=== PATIENT | male | born 1960 | race Caucasian/White ===

== ENCOUNTER 2019-09-25 21:54 | Emergency (ER) | payer BC ==
[2019-09-25] MEDS ORDERED: KETOROLAC 30 MG/ML 1 ML VIAL IVP STA ×2 (22:40→22:41)
[2019-09-25] MEDS ORDERED: SODIUM CHLORIDE 0.9% 1,000 ML IV STA (22:40)
[2019-09-25 23:28] VITALS: RESP 18
[2019-09-25 23:31] LABS: Basophils % (A) 0 %; Eosinophils # (A) 0.2 k/uL (0-0.7); Eosinophils % (A) 3 %; HCT 44.4 % (39.0-53.0); HGB 14.6 gm/dL (13.0-17.5); Lymphocytes # (A) 0.7 k/uL (1.0-4.8); Lymphocytes % (A) 8 %; MCHC 32.9 g/dL (31.0-37.0); Mean Platelet Volume 8.5; Monocytes # (A) 0.4 k/uL (0-1.0); Monocytes % (A) 4 %; Neutrophils # (A) 7.5 k/uL (1.3-7.7); Neutrophils % (A) 84 %; Platelet Count 227 k/uL (150-450); RBC 5.04 m/uL (4.30-5.90)
[2019-09-25 23:41] LABS: Appearance,Urine Clear (Clear); Bilirubin,Urine Negative (Negative); Blood,Urine Small (Negative); Color,Urine Yellow; Glucose,Urine (UA) Negative (Negative); Hyaline Casts,Urine 1 /lpf (0-2); Ketones,Urine Negative (Negative); Leukocyte Esterase,Urine Negative (Negative); Mucus,Urine Occasional /hpf; Nitrite,Urine Negative (Negative); PH, Urine 6.5 (5.0-8.0); Protein,Urine 1+ (Negative); RBC,Urine 36 /hpf (0-5); Specific Gravity,Urine 1.025 (1.001-1.035); Squamous Epithelial Cell,Urine 1 /hpf (0-4); WBC,Urine 5 /hpf (0-5)
[2019-09-25 23:43] LABS: ALT 32 U/L (4-49); AST 31 U/L (17-59); African American GFR (CKD) >90 (>60 ml/min/1.73 sqM); Albumin 4.5 g/dL (3.5-5.0); Alkaline Phosphatase 66 U/L (38-126); Anion Gap 9 mmol/L; Blood Urea Nitrogen 19 mg/dL (9-20); Calcium 9.2 mg/dL (8.4-10.2); Carbon Dioxide 23 mmol/L (22-30); Chloride 107 mmol/L (98-107); Glucose 167 mg/dL (74-99); Non-African American GFR(CKD) >90 (>60 ml/min/1.73 sqM); Potassium 4.2 mmol/L (3.5-5.1); Sodium 139 mmol/L (137-145); Total Bilirubin 0.5 mg/dL (0.2-1.3); Total Protein 7.7 g/dL (6.3-8.2)
--- NOTE | 2019-09-26 00:27 | CT ---
EXAMINATION TYPE: CT abdomen pelvis wo con DATE OF EXAM: 09/26/2019 COMPARISON: None HISTORY: RLQ pain Difficulty urinating CT DLP: 1320.4 mGycm Automated exposure control for dose reduction was used. Multiple axial sections were obtained from the diaphragm to the floor the pelvis with no contrast. FINDINGS: Lung bases are clear. There is no pleural effusion. Heart size is normal. There is no pericardial eff usion. Liver spleen stomach pancreas gallbladder appear normal. Bile ducts are not dilated. There is no adrenal mass. Kidneys show normal size and contour. There is no hydronephrosis. There is 1 mm calculus interpolar left kidney. Ureters are not dilated. There is no retroperitoneal adenopathy . Bladder distends smoothly. Bladder is almost empty. There is a 1 mm calcification in the urinary bl adder on the right side that is probably a tiny stone in the distal right ureter at the ureterovesica l junction. There is minimal prostatic calcification. There is no inguinal hernia. There is no free f luid in the pelvis. Appendix appears normal. There is no mesenteric edema. There is no ascites or free air. There is no e vidence of a bowel obstruction. Lumbar spine is intact. Bony pelvis is intact. IMPRESSION: Tiny left renal calculus. Tiny calculus at the right ureterovesical junction without hydronephrosis. Normal appendix.
--- NOTE | 2019-09-26 00:53 | ED ---
General Adult HPI - General Chief complaint: Abdominal Pain Stated complaint: Abd pain Time Seen by Provider: 09/25/19 22:21 Source: patient, RN notes reviewed, old records reviewed Mode of arrival: ambulatory Limitations: no limitations - History of Present Illness Initial comments: 59-year-old male patient is a past history Ceftin for renal calculi appro ximately 10 years ago presents to ED complaining of right lower quadrant pain. Patient was this pain began approximately 1900 today. Reports they felt that he had to urinate, however when he attempts to urinate is unable to. Patient has been able to urinate since without difficulty however. Denies any chest pain shortness of breath. Denies any other complaints at this time. Systemic: Pt denies fatigue, fever/chills, rash. Pt denies weakness, night sweats, weight loss. Neuro: Pt denies headache, visual disturbances, syncope or pre-syncope. HEENT: Pt denies ocular discharge or irritation, otalgia, rhinorrhea, pharyngitis or notable lymphadenopathy. Cardiopulmonary: Pt denies chest pain, SOB, heart palpitations, dyspnea on exertion. Abdominal/GI: Pt denies n/v/d. : Pt denies dysuria, burning w/ urination, frequency/urgency. Denies new onset urinary or bowel incontinence. MSK: Pt denies myalgia, loss of strength or function in extremities. Neuro: Pt denies new onset weakness, paresthesias. - Related Data Previous Rx's Medication Instructions Recorded Tamsulosin [Flomax] 0.4 mg PO DAILY #10 cap 09/26/19 Allergies Allergy/AdvReac Type Severity Reaction Status Date / Time No Known Allergies Allergy Verified 09/25/19 22:01 Review of Systems ROS Statement: Those systems with pertinent positive or pertinent negative responses have been documented in the HPI. ROS Other: All systems not noted in ROS Statement are negative. Past Medical History Past Medical History: Hyperlipidemia History of Any Multi-Drug Resistant Organisms: None Reported Past Surgical History: Orthopedic Surgery Past Psychological History: No Psychological Hx Reported Smoking Status: Never smoker Past Alcohol Use History: None Reported Past Drug Use History: None Reported General Exam - General Exam Comments Initial Comments: Constitutional: NAD, AOX3, Pt has pleasant affect. HEENT: NC/AT, trachea midline, neck supple, no lymphadenopathy. Posterior pharynx non erythematous, without exudates. External ears appear normal, without discharge. Mucous membranes moist. Eyes PERRLA, EOM intact. There is no scleral icterus. No pallor noted. Cardiopulmonary: RRR, no murmurs, rubs or gallops, no JVD noted. Lungs CTAB in anterior and posterior coffey. No peripheral edema. Abdominal exam: Abdomen soft and non-distended. Abdomen mildly tender to palpation right lower quadrant, there is no abdominal tenderness. Bowel sounds active in LLQ. No hepatosplenomegaly. No ecchymosis Neuro: CN II-XII grossly intact. No nuchal rigidity. No raccon eyes, no turner sign, no hemotympanum. No cervical spinal tenderness. MSK: No posterior calf tenderness bilaterally, homans sign negative bilaterally. Posterior tibialis and radial pulse +2 bilaterally. Sensation intact in upper and lower extremities. Full active ROM in upper and lower extremities, 5/5 stregnth. Limitations: no limitations Course Vital Signs 09/25/19 09/25/19 22:02 23:26 Temperature 97.4 F L Pulse Rate 88 83 Respiratory 20 18 Rate Blood Pressure 141/95 141/95 O2 Sat by Pulse 94 L 97 Oximetry Medical Decision Making - Medical Decision Making 59-year-old male patient presents ED by right lower quadrant abdominal pain. Patient vital signs are stable, afebrile. Physical exam same in the right lower quadrant tenderness. Laboratory investigation revealed hyperglycemia 167. UA displayed 36 red blood cells. This patient has history of renal calculi in the abdominal region is very mildly tender to palpation, UA consistent with renal calculi a CT head and pelvis without contrast was obtained. This did display a small ureteral calculi on the right side. No signs of septic stone. No hydronephrosis. Patient discharged with Flomax and urology follow-up. Case discussed with Dr. Hill. - Lab Data Result diagrams: 09/25/19 23:01 09/25/19 23:01 Lab Results 09/25/19 09/25/19 09/25/19 Range/Units 23:01 23:01 23:01 WBC 9.0 (3.8-10.6) k/uL RBC 5.04 (4.30-5.90) m/uL Hgb 14.6 (13.0-17.5) gm/dL Hct 44.4 (39.0-53.0) % MCV 88.0 (80.0-100.0) fL MCH 29.0 (25.0-35.0) pg MCHC 32.9 (31.0-37.0) g/dL RDW 13.0 (11.5-15.5) % Plt Count 227 (150-450) k/uL Neutrophils % 84 % Lymphocytes % 8 % Monocytes % 4 % Eosinophils % 3 % Basophils % 0 % Neutrophils # 7.5 (1.3-7.7) k/uL Lymphocytes # 0.7 L (1.0-4.8) k/uL Monocytes # 0.4 (0-1.0) k/uL Eosinophils # 0.2 (0-0.7) k/uL Basophils # 0.0 (0-0.2) k/uL Sodium 139 (137-145) mmol/L Potassium 4.2 (3.5-5.1) mmol/L Chloride 107 (98-107) mmol/L Carbon Dioxide 23 (22-30) mmol/L Anion Gap 9 mmol/L BUN 19 (9-20) mg/dL Creatinine 0.76 (0.66-1.25) mg/dL Est GFR (CKD-EPI)AfAm >90 (>60 ml/min/1.73 sqM) Est GFR (CKD-EPI)NonAf >90 (>60 ml/min/1.73 sqM) Glucose 167 H (74-99) mg/dL Plasma Lactic Acid Simeon 1.4 (0.7-2.0) mmol/L Calcium 9.2 (8.4-10.2) mg/dL Total Bilirubin 0.5 (0.2-1.3) mg/dL AST 31 (17-59) U/L ALT 32 (4-49) U/L Alkaline Phosphatase 66 (38-126) U/L Total Protein 7.7 (6.3-8.2) g/dL Albumin 4.5 (3.5-5.0) g/dL Lipase 46 (23-300) U/L Urine Color Urine Appearance (Clear) Urine pH (5.0-8.0) Ur Specific Kelliher (1.001-1.035) Urine Protein (Negative) Urine Glucose (UA) (Negative) Urine Ketones (Negative) Urine Blood (Negative) Urine Nitrite (Negative) Urine Bilirubin (Negative) Urine Urobilinogen (<2.0) mg/dL Ur Leukocyte Esterase (Negative) Urine RBC (0-5) /hpf Urine WBC (0-5) /hpf Ur Squamous Epith Cells (0-4) /hpf Hyaline Casts (0-2) /lpf Urine Mucus (None) /hpf 09/25/19 Range/Units 23:01 WBC (3.8-10.6) k/uL RBC (4.30-5.90) m/uL Hgb (13.0-17.5) gm/dL Hct (39.0-53.0) % MCV (80.0-100.0) fL MCH (25.0-35.0) pg MCHC (31.0-37.0) g/dL RDW (11.5-15.5) % Plt Count (150-450) k/uL Neutrophils % % Lymphocytes % % Monocytes % % Eosinophils % % Basophils % % Neutrophils # (1.3-7.7) k/uL Lymphocytes # (1.0-4.8) k/uL Monocytes # (0-1.0) k/uL Eosinophils # (0-0.7) k/uL Basophils # (0-0.2) k/uL Sodium (137-145) mmol/L Potassium (3.5-5.1) mmol/L Chloride (98-107) mmol/L Carbon Dioxide (22-30) mmol/L Anion Gap mmol/L BUN (9-20) mg/dL Creatinine (0.66-1.25) mg/dL Est GFR (CKD-EPI)AfAm (>60 ml/min/1.73 sqM) Est GFR (CKD-EPI)NonAf (>60 ml/min/1.73 sqM) Glucose (74-99) mg/dL Plasma Lactic Acid Simeon (0.7-2.0) mmol/L Calcium (8.4-10.2) mg/dL Total Bilirubin (0.2-1.3) mg/dL AST (17-59) U/L ALT (4-49) U/L Alkaline Phosphatase (38-126) U/L Total Protein (6.3-8.2) g/dL Albumin (3.5-5.0) g/dL Lipase (23-300) U/L Urine Color Yellow Urine Appearance Clear (Clear) Urine pH 6.5 (5.0-8.0) Ur Specific Kelliher 1.025 (1.001-1.035) Urine Protein 1+ H (Negative) Urine Glucose (UA) Negative (Negative) Urine Ketones Negative (Negative) Urine Blood Small H (Negative) Urine Nitrite Negative (Negative) Urine Bilirubin Negative (Negative) Urine Urobilinogen 2.0 (<2.0) mg/dL Ur Leukocyte Esterase Negative (Negative) Urine RBC 36 H (0-5) /hpf Urine WBC 5 (0-5) /hpf Ur Squamous Epith Cells 1 (0-4) /hpf Hyaline Casts 1 (0-2) /lpf Urine Mucus Occasional H (None) /hpf Disposition Clinical Impression: Ureteral calculi Disposition: HOME SELF-CARE Condition: Stable Instructions (If sedation given, give patient instructions): Kidney Stones (ED) Additional Instructions: Take medications as directed. Follow-up with urologist tomorrow. Return to ER if condition worsens in any way. Prescriptions: Tamsulosin [Flomax] 0.4 mg PO DAILY #10 cap Is patient prescribed a controlled substance at d/c from ED?: No Referrals: None,Stated [Primary Care Provider] - 1-2 days Kory Musa MD [STAFF PHYSICIAN] - 1-2 days
[2019-09-26 01:07] VITALS: BP 147/93; PULSE 68; TEMP 98.1
== END 2019-09-26 01:10 | disposition home or self-care (01) ==
LOC: EC 21:54
DX: N20.1 Calculus of ureter (principal); R73.9 Hyperglycemia, unspecified
CPT/HCPCS: 36415; 80053; 83605; 83690; 85025; 81001; 74176; 99284; 96374; 96361 ×2; J1885

== ENCOUNTER 2019-11-09 18:07 | Observation (INO) | payer BC ==
--- NOTE | 2019-11-09 20:49 | ED ---
General Adult HPI - General Chief complaint: Recheck/Abnormal Lab/Rx Stated complaint: dizzy Time Seen by Provider: 11/09/19 20:00 Source: patient, RN notes reviewed Mode of arrival: ambulatory Limitations: no limitations - History of Present Illness Initial comments: This is a 59-year-old male with a benign past medical history who is neither a smoker or drinker but does have a family history of a mother that had congestive heart failure changes 64 states he had the onset today of some lightheadedness which started about 1:45 PM. 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 He went to local clinic and was sent here for further evaluation. He states he feels fine now does state about 3 weeks ago he has some chest pain last for brief several minutes was very severe pain. Currently he is asymptomatic this time he denies any chest pain palpitations abdominal pain nausea vomiting sweats or other symptoms. He does state with respect to the other symptoms he has put his arms above his head multiple times since the episode and is not able to reproduce it. - Related Data Home Medications Medication Instructions Recorded Confirmed No Known Home Medications 11/09/19 11/09/19 Allergies Allergy/AdvReac Type Severity Reaction Status Date / Time No Known Allergies Allergy Verified 11/09/19 21:24 Review of Systems ROS Statement: Those systems with pertinent positive or pertinent negative responses have been documented in the HPI. ROS Other: All systems not noted in ROS Statement are negative. Past Medical History Past Medical History: Hyperlipidemia History of Any Multi-Drug Resistant Organisms: None Reported Past Surgical History: Orthopedic Surgery Past Psychological History: No Psychological Hx Reported Smoking Status: Never smoker Past Alcohol Use History: None Reported Past Drug Use History: Marijuana General Exam - General Exam Comments Initial Comments: This is a well-developed well-nourished awake alert oriented 3 male Limitations: no limitations General appearance: alert, in no apparent distress Head exam: Present: atraumatic, normocephalic, normal inspection Eye exam: Present: normal appearance, PERRL, EOMI. Absent: scleral icterus, conjunctival injection, periorbital swelling ENT exam: Present: normal exam, mucous membranes moist Neck exam: Present: normal inspection, full ROM, other (No stridor JVD or bruits). Absent: tenderness, meningismus, lymphadenopathy Respiratory exam: Present: normal lung sounds bilaterally. Absent: respiratory distress, wheezes, rales, rhonchi, stridor Cardiovascular Exam: Present: regular rate, normal rhythm, normal heart sounds. Absent: systolic murmur, diastolic murmur, rubs, gallop, clicks GI/Abdominal exam: Present: soft, normal bowel sounds. Absent: distended, tenderness, guarding, rebound, rigid Extremities exam: Present: normal inspection, full ROM, normal capillary refill. Absent: tenderness, pedal edema, joint swelling, calf tenderness Back exam: Present: normal inspection Neurological exam: Present: alert, oriented X3, CN II-XII intact Psychiatric exam: Present: normal affect, normal mood Skin exam: Present: warm, dry, intact, normal color. Absent: rash Course Vital Signs 11/09/19 18:39 Temperature 97.7 F Pulse Rate 69 Respiratory 19 Rate Blood Pressure 158/93 O2 Sat by Pulse 96 Oximetry - Reevaluation(s) Reevaluation #1: 11/09/19 23:40 Reevaluation patient revealed no further symptoms EKG Findings - EKG Results: EKG: interpreted by PAMELA GOTTI, sinus rhythm, normal axis, normal QRS, normal ST/T, no acute changes (Normal sinus rhythm a 66. Ago 170 QRS duration 92 QT since QTC 428/[address]-T wave changes this is compared with an EKG submitted from the outpatient clinic.) Medical Decision Making - Medical Decision Making I did have a long discussion with the patient regarding findings he had multiple pericecal episodes. Due to the presentation patient will be admitted for evaluation I did discuss this with Dr. Quinones. Cardiology as well as neurology will be consulted. - Lab Data Result diagrams: 11/09/19 20:37 11/09/19 20:37 Lab Results 11/09/19 11/09/19 11/09/19 Range/Units 20:37 20:37 20:37 WBC 8.5 (3.8-10.6) k/uL RBC 5.13 (4.30-5.90) m/uL Hgb 14.5 (13.0-17.5) gm/dL Hct 45.5 (39.0-53.0) % MCV 88.7 (80.0-100.0) fL MCH 28.2 (25.0-35.0) pg MCHC 31.8 (31.0-37.0) g/dL RDW 13.3 (11.5-15.5) % Plt Count 253 (150-450) k/uL Neutrophils % 70 % Lymphocytes % 18 % Monocytes % 6 % Eosinophils % 2 % Basophils % 2 % Neutrophils # 6.0 (1.3-7.7) k/uL Lymphocytes # 1.5 (1.0-4.8) k/uL Monocytes # 0.5 (0-1.0) k/uL Eosinophils # 0.2 (0-0.7) k/uL Basophils # 0.1 (0-0.2) k/uL D-Dimer (<0.60) mg/L FEU Sodium 138 (137-145) mmol/L Potassium 4.7 (3.5-5.1) mmol/L Chloride 106 (98-107) mmol/L Carbon Dioxide 22 (22-30) mmol/L Anion Gap 10 mmol/L BUN 21 H (9-20) mg/dL Creatinine 0.60 L (0.66-1.25) mg/dL Est GFR (CKD-EPI)AfAm >90 (>60 ml/min/1.73 sqM) Est GFR (CKD-EPI)NonAf >90 (>60 ml/min/1.73 sqM) Glucose 88 (74-99) mg/dL Calcium 9.7 (8.4-10.2) mg/dL Magnesium 2.1 (1.6-2.3) mg/dL Total Bilirubin 0.6 (0.2-1.3) mg/dL AST 34 (17-59) U/L ALT 36 (4-49) U/L Alkaline Phosphatase 63 (38-126) U/L Creatine Kinase 91 (55-170) U/L Troponin I <0.012 (0.000-0.034) ng/mL Total Protein 7.9 (6.3-8.2) g/dL Albumin 4.7 (3.5-5.0) g/dL 11/09/19 Range/Units 20:46 WBC (3.8-10.6) k/uL RBC (4.30-5.90) m/uL Hgb (13.0-17.5) gm/dL Hct (39.0-53.0) % MCV (80.0-100.0) fL MCH (25.0-35.0) pg MCHC (31.0-37.0) g/dL RDW (11.5-15.5) % Plt Count (150-450) k/uL Neutrophils % % Lymphocytes % % Monocytes % % Eosinophils % % Basophils % % Neutrophils # (1.3-7.7) k/uL Lymphocytes # (1.0-4.8) k/uL Monocytes # (0-1.0) k/uL Eosinophils # (0-0.7) k/uL Basophils # (0-0.2) k/uL D-Dimer 0.39 (<0.60) mg/L FEU Sodium (137-145) mmol/L Potassium (3.5-5.1) mmol/L Chloride (98-107) mmol/L Carbon Dioxide (22-30) mmol/L Anion Gap mmol/L BUN (9-20) mg/dL Creatinine (0.66-1.25) mg/dL Est GFR (CKD-EPI)AfAm (>60 ml/min/1.73 sqM) Est GFR (CKD-EPI)NonAf (>60 ml/min/1.73 sqM) Glucose (74-99) mg/dL Calcium (8.4-10.2) mg/dL Magnesium (1.6-2.3) mg/dL Total Bilirubin (0.2-1.3) mg/dL AST (17-59) U/L ALT (4-49) U/L Alkaline Phosphatase (38-126) U/L Creatine Kinase (55-170) U/L Troponin I (0.000-0.034) ng/mL Total Protein (6.3-8.2) g/dL Albumin (3.5-5.0) g/dL - Radiology Data Radiology results: report reviewed (I did review the imaging and report no acute findings however the CT does show evidence of a old lacunar infarct), image reviewed Disposition Clinical Impression: Near syncope Disposition: ADMITTED IP TO THIS [facility] Condition: Stable Referrals: None,Stated [Primary Care Provider] - 1-2 days
[2019-11-09 20:50] LABS: Basophils # (A) 0.1 k/uL (0-0.2); Basophils % (A) 2 %; Eosinophils # (A) 0.2 k/uL (0-0.7); Eosinophils % (A) 2 %; HCT 45.5 % (39.0-53.0); HGB 14.5 gm/dL (13.0-17.5); Lymphocytes # (A) 1.5 k/uL (1.0-4.8); Lymphocytes % (A) 18 %; MCH 28.2 pg (25.0-35.0); MCHC 31.8 g/dL (31.0-37.0); MCV 88.7 fL (80.0-100.0); Mean Platelet Volume 8.8; Monocytes # (A) 0.5 k/uL (0-1.0); Monocytes % (A) 6 %; Neutrophils % (A) 70 %; Platelet Count 253 k/uL (150-450); RBC 5.13 m/uL (4.30-5.90); RDW 13.3 % (11.5-15.5); WBC 8.5 k/uL (3.8-10.6)
[2019-11-09 21:03] LABS: ALT 36 U/L (4-49); AST 34 U/L (17-59); African American GFR (CKD) >90 (>60 ml/min/1.73 sqM); Albumin 4.7 g/dL (3.5-5.0); Alkaline Phosphatase 63 U/L (38-126); Anion Gap 10 mmol/L; Blood Urea Nitrogen 21 mg/dL (9-20); Calcium 9.7 mg/dL (8.4-10.2); Carbon Dioxide 22 mmol/L (22-30); Chloride 106 mmol/L (98-107); Creatine Kinase 91 U/L (55-170); Glucose 88 mg/dL (74-99); Magnesium 2.1 mg/dL (1.6-2.3); Non-African American GFR(CKD) >90 (>60 ml/min/1.73 sqM); Potassium 4.7 mmol/L (3.5-5.1); Sodium 138 mmol/L (137-145); Total Bilirubin 0.6 mg/dL (0.2-1.3); Total Protein 7.9 g/dL (6.3-8.2)
--- NOTE | 2019-11-09 21:12 | XR ---
EXAMINATION TYPE: XR chest 2V DATE OF EXAM: 11/09/2019 COMPARISON: NONE HISTORY: Hypertension TECHNIQUE: FINDINGS: Heart and mediastinum are normal. Lungs are clear. Diaphragm is normal. Bony thorax appears normal. IMPRESSION: Normal chest. Normal heart.
--- NOTE | 2019-11-09 21:25 | CT ---
EXAMINATION TYPE: CT brain wo con DATE OF EXAM: 11/09/2019 COMPARISON: None HISTORY: ams, dizziness CT DLP: 1090.4 mGycm Automated exposure control for dose reduction was used. Multiple axial sections were obtained of the brain without contrast. Ventricles have normal size. There is no mass effect nor midline shift. There is no sign of intracran ial hemorrhage. There is 1.5 x 1 cm hypodense area in the anterior right internal capsule. The calvar ium is intact. IMPRESSION: There is old lacunar infarct anterior right internal capsule. No acute intracranial abnormality.
[2019-11-09] MEDS ORDERED: ACETAMINOPHEN TAB 325 MG TAB PO PRN (23:42)
[2019-11-09] MEDS ORDERED: NALOXONE 0.4 MG/ML 1 ML VIAL IV PRN (23:42)
[2019-11-09] MEDS ORDERED: SODIUM CHLORIDE 0.9% 1,000 ML IV SCH (23:45)
[2019-11-09] MEDS ORDERED: ASPIRIN 81 MG PO STA (23:45)
[2019-11-10] MEDS ORDERED: MECLIZINE 25 MG TAB PO PRN (08:30)
[2019-11-10] MEDS: SODIUM CHLORIDE 0.9% 1,000 ML IV SCH ×2 (09:22→20:06)
[2019-11-10] MEDS: ASPIRIN 81 MG PO SCH (09:22)
[2019-11-10 09:42] LABS: African American GFR (CKD) >90 (>60 ml/min/1.73 sqM); Anion Gap 9 mmol/L; Blood Urea Nitrogen 21 mg/dL (9-20); Calcium 9.5 mg/dL (8.4-10.2); Carbon Dioxide 26 mmol/L (22-30); Chloride 105 mmol/L (98-107); Cholesterol 292 mg/dL (<200); Glucose 88 mg/dL (74-99); HDL Cholesterol 39 mg/dL (40-60); LDL Cholesterol,Calculated 210 mg/dL (0-99); Non-African American GFR(CKD) >90 (>60 ml/min/1.73 sqM); Potassium 4.3 mmol/L (3.5-5.1); Sodium 140 mmol/L (137-145); Triglycerides 213 mg/dL (<150)
--- NOTE | 2019-11-10 10:35 | US ---
EXAMINATION TYPE: US carotid duplex BILAT DATE OF EXAM: 11/10/2019 COMPARISON: NONE CLINICAL HISTORY: near syncope. dizziness after stretching yesterday and then an episode while drivin g, no h/o stroke EXAM MEASUREMENTS: RIGHT: Peak Systolic Velocity (PSV) cm/sec ----- Right CCA: 86.4 ----- Right ICA: 121.1 ----- Right ECA: 180.0 ICA/CCA ratio: 1.4 RIGHT: End Diastole cm/sec ----- Right CCA: 29.2 ----- Right ICA: 31.8 ----- Right ECA: 22.3 LEFT: Peak Systolic Velocity (PSV) cm/sec ----- Left CCA: 91.9 ----- Left ICA: 128.1 ----- Left ECA: 240.6 ICA/CCA ratio: 1.4 LEFT: End Diastole cm/sec ----- Left CCA: 32.5 ----- Left ICA: 48.9 ----- Left ECA: 42.6 VERTEBRALS (direction of flow): Right Vertebral: Antegrade Left Vertebral: Antegrade Rhythm: Normal Mild homogeneous plaque seen with no significant stenosis, increased velocities seen at the left ECA IMPRESSION: Mild degree of grayscale atheromatous plaquing with no sonographically evident hemodynam ically significant stenosis within either visualized carotid arterial system. Criteria for Assigning % of Stenosis / Diameter reduction (Estimation based on the indirect measurements of the internal carotid artery velocities (ICA PSV). 1. Normal (no stenosis)=ICA PSV < 125 cm/s: ratio < 2.0: ICA EDV<40 cm/s. 2. Less than 50% stenosis=ICA PSV < 125 cm/s: ratio < 2.0: ICA EDV<40 cm/s. 3. 50 to 69% stenosis=ICA PSV of 125 to 230 cm/s: ration 2.0 ? 4.0: ICA EDV 40-100 cm/s. 4. Greater than 70% stenosis to near occlusion= ICA PSV > 230 cm/s: ratio > 4.0: ICA EDV > 100 cm/s. 5. Near occlusion= ICA PSV velocities may be low or undetectable: variable ratio and ICA EDV. 6. Total occlusion=unable to detect flow.
--- NOTE | 2019-11-10 11:23 | ECHOF ---
Referral Reason:near syncope MEASUREMENTS -------- HEIGHT: 170.2 cm WEIGHT: 112.5 kg BP: 147/87 RVIDd: 2.9 cm (< 3.3) IVSd: 1.1 cm (0.6 - 1.1) LVIDd: 5.2 cm (3.9 - 5.3) LVPWd: 1.3 cm (0.6 - 1.1) IVSs: 1.5 cm LVIDs: 3.4 cm LVPWs: 1.6 cm LA Diam: 3.3 cm (2.7 - 3.8) LAESV Index (A-L): 23.31 ml/m Ao Diam: 3.5 cm (2.0 - 3.7) AV Cusp: 2.4 cm (1.5 - 2.6) MV EXCURSION: 19.783 mm (> 18.000) MV EF SLOPE: 87 mm/s (70 - 150) EPSS: 0.8 cm MV E Nahid: 1.06 m/s MV DecT: 227 ms MV A Nahid: 1.10 m/s MV E/A Ratio: 0.96 RAP: 5.00 mmHg RVSP: 32.03 mmHg FINDINGS -------- Sinus rhythm. This was a technically adequate study. The left ventricular size is normal. There is mild concentric left ventricular hypertrophy. Overa ll left ventricular systolic function is normal with, an EF between 60 - 65 %. The right ventricle is normal in size. Normal LA size by volume 22+/-6 ml/m2. The right atrium is normal in size. Interatrial and interventricular septum intact. Aneurysmal Interatrial septum. The aortic valve is trileaflet and appears structurally normal. Mild mitral annular calcification present. Mild tricuspid regurgitation present. Right ventricular systolic pressure is normal at < 35 mmHg. There is no pulmonic regurgitation present. The aortic root size is normal. Normal inferior vena cava with normal inspiratory collapse consistent with estimated right atrial pre ssure of 5 mmHg. There is no pericardial effusion. CONCLUSIONS -------- 1. Sinus rhythm. 2. This was a technically adequate study. 3. The left ventricular size is normal. 4. There is mild concentric left ventricular hypertrophy. 5. Overall left ventricular systolic function is normal with, an EF between 60 - 65 %. 6. The right ventricle is normal in size. 7. Normal LA size by volume 22+/-6 ml/m2. 8. The right atrium is normal in size. 9. Interatrial and interventricular septum intact. 10. Aneurysmal Interatrial septum. 11. The aortic valve is trileaflet and appears structurally normal. 12. Mild mitral annular calcification present. 13. Mild tricuspid regurgitation present. 14. Right ventricular systolic pressure is normal at < 35 mmHg. 15. There is no pulmonic regurgitation present. 16. The aortic root size is normal. 17. Normal inferior vena cava with normal inspiratory collapse consistent with estimated right atrial pressure of 5 mmHg. 18. There is no pericardial effusion. RANGE FEEDER: Zee Bee RDCS
--- NOTE | 2019-11-10 11:26 | P.CRDCN ---
History of Present Illness History of present illness: HISTORY OF PRESENTING ILLNESS This is a pleasant 59-year-old male with no significant past medical history. Denies prior history of coronary artery disease, hypertension, dyslipidemia or diabetes mellitus and does not follow in the office with a engineer and geologist for any reason. We have been asked to see in consultation for near- syncope. 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 He was sitting down drinking a cup of coffee and doing some morning stretches when he started feeling acutely dizzy. He states it felt like the room was spinning he had to brace himself on the couch because he thought he was going to follow from pass out. This lasted for about 30 seconds. He sat down in his chest coffee and attempted to do his stretching again in an attempt to reproduce the event. There is no recurrence so he carried on with his day and began driving to work. While he was [place] down the [place] he had a similar episode. 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 Again he felt dizzy and the room was spinning but this time he also felt nauseated. Again this episode lasted approximately 30 seconds and subsided on its own. He is able to drive himself to the urgent care. While in the urgent care he had 2 more episodes and was sent to the emergency department for further evaluation. Since arriving in the emergency department he had no further episodes. He denies ever having had any chest pain, shortness of breath or palpitations during these episodes. There was no loss of consciousness. Around Ángel time he had a self no stenting or infection. But has not any symptoms of ear discomfort, congestion, cough, fever or chills since that time He does state approximately 3 weeks ago while sitting down watching television he had an episode of tightness in the midsternal region with radiation down the left arm with tingling in the left fingers. This episode lasted approximately 5 minutes and subsided on its own. DIAGNOSTICS EKG reveals sinus mechanism heart rate 66. Chest xray negative for an acute cardiopulmonary process. CT brain reveals evidence of old lacunar infarct in the anterior right internal capsule with no acute intracranial abnormality. Laboratory reviewed, CBC unremarkable, d-dimer 0.39, sodium 138, potassium 4.7, creatinine 0.6, troponin negative 2, magnesium 2.1. He takes no daily medications and has never had any diagnostic cardiac testing. REVIEW OF SYSTEMS At the time of my exam: CONSTITUTIONAL: Denies fever or chills. CARDIOVASCULAR: Denies chest pain, shortness of breath, orthopnea, PND or palpitations. RESPIRATORY: Denies cough. GASTROINTESTINAL: Denies abdominal pain, diarrhea, constipation, nausea or vomiting. MUSCULOSKELETAL: Denies myalgias. NEUROLOGIC: Denies numbness, tingling or weakness. ENDOCRINE: Denies fatigue, weight change, polydipsia or polyurina. GENITOURINARY: Denies burning, hematuria or urgency with micturation. HEMATOLOGIC: Denies history of anemia or bleeding. PHYSICAL EXAMINATION Blood pressure 147/87 heart rate 62 afebrile and maintaining oxygen saturation on room air. CONSTITUTIONAL: No apparent distress. Obese. HEENT: Head is normocephalic. Pupils are equal, round. Sclerae anicteric. Mucous membranes of the mouth are moist. No JVD. No carotid bruit. CHEST EXAMINATION: Lungs are clear to auscultation. No chest wall tenderness is noted on palpation or with deep breathing. HEART EXAMINATION: Regular rate and rhythm. S1, S2 heard. No murmurs, gallops or rub. ABDOMEN: Soft, nontender. Positive bowel sounds. EXTREMITIES: 2+ peripheral pulses, no lower extremity edema and no calf tenderness. NEUROLOGIC EXAMINATION: Patient is awake, alert and oriented x3. ASSESSMENT Dizziness, suggestive of vertigo with history of recent ear disturbance Chest pain, atypical. Hypertension Obesity, BMI 39 PLAN Continue to obtain serial cardiac enzymes to rule out an acute event. Obtain 2D echocardiogram and doppler study to assess cardiac structure and function. Obtain bilateral carotid dopplers. Given antivert 25 mg BID PRN if he has another episode. Hydrate with 0.9% NS at 75cc/hr. Repeat BMP and lipid panel. Apply activities director to assess for an acute arrhythmia. Suggest ENT evaluation. Thank you kindly for this consultation. Nurse Practitioner note has been reviewed, I agree with a documented findings and plan of care. Patient was seen and examined. Past Medical History Past Medical History: Hyperlipidemia History of Any Multi-Drug Resistant Organisms: None Reported Past Surgical History: Orthopedic Surgery Past Psychological History: No Psychological Hx Reported Smoking Status: Never smoker Past Alcohol Use History: None Reported Past Drug Use History: Marijuana - Past Family History Father Family Medical History: CVA/TIA, Myocardial Infarction ([place]) Additional Family Medical History / Comment(s): Father at the age of 78yrs with a [place]/CVA. Mother Family Medical History: Congestive Heart Failure (CHF), Pneumonia Additional Family Medical History / Comment(s): Mother of chf at the age of 62 yrs. Medications and Allergies Home Medications Medication Instructions Recorded Confirmed Type No Known Home Medications 11/09/19 11/09/19 History Allergies Allergy/AdvReac Type Severity Reaction Status Date / Time No Known Allergies Allergy Verified 11/09/19 21:24 Physical Exam Vitals: Vital Signs Temp Pulse Resp BP Pulse Ox 11/10/19 06:19 97.6 F 62 18 147/87 96 11/10/19 00:13 81 18 151/86 95 11/09/19 18:39 97.7 F 69 19 158/93 96 Intake and Output 11/09/19 11/10/19 11/10/19 22:59 06:59 14:59 Other: Weight 112.808 kg Results 11/09/19 20:37 11/10/19 08:53 Cardiac Enzymes 11/09/19 11/09/19 11/10/19 Range/Units 20:37 20:37 02:18 AST 34 (17-59) U/L Troponin I <0.012 <0.012 (0.000-0.034) ng/mL CBC 11/09/19 Range/Units 20:37 WBC 8.5 (3.8-10.6) k/uL RBC 5.13 (4.30-5.90) m/uL Hgb 14.5 (13.0-17.5) gm/dL Hct 45.5 (39.0-53.0) % Plt Count 253 (150-450) k/uL Comprehensive Metabolic Panel 11/09/19 Range/Units 20:37 Sodium 138 (137-145) mmol/L Potassium 4.7 (3.5-5.1) mmol/L Chloride 106 (98-107) mmol/L Carbon Dioxide 22 (22-30) mmol/L BUN 21 H (9-20) mg/dL Creatinine 0.60 L (0.66-1.25) mg/dL Glucose 88 (74-99) mg/dL Calcium 9.7 (8.4-10.2) mg/dL AST 34 (17-59) U/L ALT 36 (4-49) U/L Alkaline Phosphatase 63 (38-126) U/L Total Protein 7.9 (6.3-8.2) g/dL Albumin 4.7 (3.5-5.0) g/dL Current Medications Generic Name Dose Route Start Last Admin Trade Name Freq PRN Reason Stop Dose Admin Acetaminophen 650 mg 11/09/19 23:42 Tylenol Tab PO Q6HR PRN Mild Pain or Fever > 100.5 Aspirin 81 mg 11/10/19 09:00 Aspirin PO DAILY ALYCE Sodium Chloride 1,000 mls @ 75 mls/hr 11/10/19 08:30 Saline 0.9% IV .[id number] ALYCE Meclizine HCl 25 mg 11/10/19 08:30 Antivert PO BID PRN Vertigo Naloxone HCl 0.2 mg 11/09/19 23:42 Narcan IV Q2M PRN Opioid Reversal Intake and Output 11/09/19 11/10/19 11/10/19 22:59 06:59 14:59 Other: Weight 112.808 kg 11/09/19 20:37 11/09/19 20:37
--- NOTE | 2019-11-10 13:51 | P.CNNES ---
History of Present Illness Consult date: 11/10/19 Requesting physician: Vicente Lombardo Reason for Consult: Near syncope History of Present Illness: Patient is a 59-year-old male who is otherwise healthy, states that yesterday at 1 PM he was sitting in the kitchen table, drinking coffee. As usual he stretched, and when he brought his right arm up, had S transient vertigo with spinning lasting for 10 seconds. He felt as if he will fall off the chair. The symptoms went away very fast. He finished his coffee. 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 Patient states that a semitruck went in past and very fast. He looked at the truck to the right, when suddenly at around 2:30 PM while driving, he had transient vertigo again. Everything started spinning, he presse d on the brakes and pulled over. The symptoms lasted for about 10-15 seconds and then resolved. He sat there for a few minutes, turned around, and tried to go to the urgent care. He had 2 more episodes while driving back, but were not as bad. He had 2 more episodes while he was in the clinic again lasting for only couple seconds. Patient was referred to ER. When he arrived, his blood pressure was 158/93, pulse rate 69 temperature 97.7. Patient underwent computed tomography scan of the head, which revealed old lacunar infarct in the right anterior internal capsule. Patient had a normal chest x-ray, normal EKG. 2-D echo revealed sinus rhythm. EF is between 60-65%. Normal left atrial size. Interatrial and interventricular septum intact. Aneurysmal interatrial septum. Patient had a carotid Doppler which revealed mild degree of grayscale atheromatous plaquing with no sonographically evident hemodynamically significant stenosis within either visualized carotid arterial system. Antegrade flow in both vertebral arteries. Patient's CBC is normal, Chem-20 is normal. His total cholesterol is 292, LDL 210, HDL 39 and triglycerides 213. Patient was given aspirin 324 mg yesterday, and he has not had any further spells. He has multiple times try to stretch his arm, but the symptoms have not reappeared. At present he feels perfectly fine. He does have some ear issues with pain in the right ear. Patient denies history of hypertension or diabetes. He does have hyperlipid emia. He has not had cholesterol checked for last 20 years. He does not take any antiplatelet medication at home. He has smoked 1 pack per day for 20 years, quit in 1998. Denies any family history of aneurysm. Review of Systems Patient denies any focal symptoms like slurred speech facial droop, loss of vision, focal numbness tingling or weakness. She denies any headache after that episodes. Denies chest pain shortness of breath wheezing or cough. He does have some left ear pain. Past Medical History Past Medical History: Hyperlipidemia Additional Past Medical History / Comment(s): Chest pain 3 weeks ago, elevated cholesterol in past-never placed on medication, CVA per cat scan taken today, per pt, bronchitis, chronic low back pain x 4 months. History of Any Multi-Drug Resistant Organisms: None Reported Past Surgical History: Orthopedic Surgery Additional Past Surgical History / Comment(s): Arthroscopy L knee torn meniscus, pin in L hand 5th finger. Past Anesthesia/Blood Transfusion Reactions: No Reported Reaction Past Psychological History: No Psychological Hx Reported Smoking Status: Never smoker Past Alcohol Use History: None Reported Past Drug Use History: Marijuana - Past Family History Father Family Medical History: CVA/TIA, Myocardial Infarction ([place]) Additional Family Medical History / Comment(s): Father at the age of 78yrs with a [place]/CVA. Mother Family Medical History: Congestive Heart Failure (CHF), Pneumonia Additional Family Medical History / Comment(s): Mother of chf at the age of 62 yrs. Medications and Allergies Home Medications Medication Instructions Recorded Confirmed Type No Known Home Medications 11/09/19 11/09/19 History Allergies Allergy/AdvReac Type Severity Reaction Status Date / Time No Known Allergies Allergy Verified 11/09/19 21:24 Physical Examination - Vital Signs Vital Signs: Vital Signs Temp Pulse Resp BP Pulse Ox 11/10/19 13:00 72 22 11/10/19 09:27 97.5 F L 77 20 147/88 96 11/10/19 06:19 97.6 F 62 18 147/87 96 11/10/19 00:13 81 18 151/86 95 11/09/19 18:39 97.7 F 69 19 158/93 96 Intake and Output 11/09/19 11/10/19 11/10/19 22:59 06:59 14:59 Other: Weight 112.808 kg 112.808 kg On examination patient is a middle aged male, in no distress. Patient is alert and awake, fully oriented to time place and person. Speech and language functions are normal. Attention and concentration fund of knowledge is adequate. On cranial nerve examination pupils are round and reactive to light, visual coffey are full on confrontation. Extraocular muscles are intact with no nystagmus. Face is symmetric, tongue protrudes the midline. Palatal elevation and sensation normal. On muscle strength testing there is no pronator drift and the strength is normal in arms and legs distally and proximally. Reflexes are 1+ and plantars downgoing sensory touch is equal. No ataxia for [id number] testing, tone and bulk of muscles and gait is normal. No carotid bruit or murmur, peripheral pulses present. Results - Laboratory Findings CBC and BMP: 11/09/19 20:37 11/10/19 08:53 Abnormal Lab Findings: Abnormal Labs 11/09/19 02 20:37 08:53 BUN 21 H 21 H Creatinine 0.60 L Triglycerides 213 H Cholesterol 292 H LDL Cholesterol, Calc 210 H HDL Cholesterol 39 L Assessment and Plan Assessment: * 59-year-old male with recurrent, episodes of transient vertigo. Exact cause is uncertain. TIA is a possibility. Doubt Peripheral vestibular dysfunction, as symptoms are not recurring after taking aspirin. CT head revealed evidence of old lacunar infarction in the anterior limb of the right internal capsule. * Elevated blood pressure reading, possible hypertension. * Hyperlipidemia * X tobacco user. Plan: * Agree with starting aspirin regimen daily for stroke prevention. Perhaps taking 325 mg (4 baby aspirin) daily for one month, then switch to low dose aspirin 81 mg thereafter. * Agree with starting Lipitor 40 mg for hyperlipidemia. Patient need to watch his diet. * Patient need to follow-up with his primary physician to closely follow up on his blood pressure reading. Lately it has been running high. Patient may require medication, if diagnosed with hypertension. We will also check hemoglobin A1c. * Neurologically clear for discharge.
[2019-11-10] MEDS: ATORVASTATIN 40 MG TAB PO SCH (14:24)
[2019-11-10] MEDS: LISINOPRIL 5 MG TAB PO SCH (14:51)
--- NOTE | 2019-11-10 16:07 | HP ---
HISTORY AND PHYSICAL CHIEF COMPLAINT: Episodes of vertigo. HISTORY OF PRESENT ILLNESS: This is the first admission for this 59-year-old white male. He came to the emergency room after he had some episodes of very abrupt and severe attacks of vertigo. 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 He did not become nauseated. He had no diplopia. He had no earache, tinnitus, etc. He decided that he should not proceed into [place] to work and turned around and came back and continued to have episodes. He came to the emergency room, was felt he should be admitted for observation. He denied any focal neurologic deficits, change in vision or hearing, chest pain, palpitations, sensation of syncope, etc. He thought maybe that when he moved his left arm up over his head it was related. This was not a consistent symptom. REVIEW OF SYSTEMS: He has had no other symptoms than already mentioned. He has had no head injuries, history of seizures, chest pain, shortness of breath, hypertension, palpitations, heart disease, syncope, orthopnea, PND, abdominal pain, nausea, vomiting, hematemesis, melena, hematochezia, colitis, diverticulosis, diverticulitis, hemorrhage, jaundice, hepatitis, cirrhosis, hematuria, renal failure, nocturia, incontinence, dysuria, diabetes, etc. Past medical history, family history, and present social history are unremarkable. ALLERGIES: He is not allergic to anything. PAST SURGICAL HISTORY: He has had a procedure on his left fifth finger and he had an arthroscopy of the left knee for a meniscus. SOCIAL HISTORY: He does not smoke or drink. PHYSICAL EXAMINATION: Blood pressure is 142/76 with a pulse of 60, respirations of 19, he is afebrile. In general, he appeared to be overweight, in no acute distress. Skin color is normal. Skin is warm and dry. Lymph nodes are not enlarged. Head, ears, eyes, nose, mouth, and throat were normal. Neck veins are not distended and carotids are normal. He had no nystagmus. The neck is supple. The chest is clear to auscultation and percussion. He is in normal sinus rhythm and no murmurs or extra sounds. The abdomen was soft and nontender without any visceromegaly or masses and bowel sounds are present. Extremities are normal. Neurologically, he is completely intact. Cranial nerves are intact from II-XII and sensory motor exam is normal, big toes are downgoing. He is admitted to the hospital with: Episodes of severe vertigo probably due to labyrinthitis. PLAN: 1. Bed rest. 2. IV fluids. 3. C and S workup. 4. Rule our arrhythmia. MMODL / IJN: [id number] /
[2019-11-10 19:12] LABS: Hemoglobin A1C 5.6 % (4.0-6.0)
--- NOTE | 2019-11-10 20:14 | PN ---
PROGRESS NOTE DATE OF SERVICE: 11/10/2019 CHIEF COMPLAINT: Vertigo. HISTORY OF PRESENT ILLNESS: This gentleman is apparently stable. He has had no chest pain, palpitations, arrhythmias, etc. His blood pressure is slightly elevated. PHYSICAL EXAM: HEENT is normal. Chest is clear. Carotids are normal. Abdomen is soft, nontender. The cardiac exam is normal. IMPRESSION: Probable labyrinthitis. PLAN: 1. Carotid studies. 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 3. Neurology consult. MMODL / IJN: [id number] /
[2019-11-11] MEDS ORDERED: ONDANSETRON 4 MG/2 ML VIAL IVP STA (07:42)
[2019-11-11] MEDS ORDERED: MECLIZINE 12.5 MG TAB PO PRN (07:42)
[2019-11-11] MEDS: ASPIRIN 81 MG PO SCH (07:50)
[2019-11-11] MEDS: ATORVASTATIN 40 MG TAB PO SCH (07:50)
[2019-11-11] MEDS: LISINOPRIL 5 MG TAB PO SCH (07:50)
[2019-11-11 08:24] VITALS: RESP 18
--- NOTE | 2019-11-11 09:06 | P.PN ---
Subjective HISTORY OF PRESENTING ILLNESS This is a pleasant 59-year-old male with no significant past medical history. 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 Overnight he has been stable with no symptoms of dizziness. However, this morning around 0700 he became acutely dizzy with associated nausea and vomiting. He states it feels like the room is spinning. He denies chest pain, shortness of breath or palpitations. Telemetry tracings are unremarkable for an arrhythmia. Blood pressure 162/99 heart rate 70 afebrile and maintaining oxygen saturation on room air. Currently maintained on aspirin 81 mg daily per neurology, atorvastatin 40 mg daily and lisinopril 5 mg daily. Antivert is ordered PRN and has not been given. Laboratory data reviewed, cardiac enzymes negative x3, sodium 140, potassium 4.3, creatinine 0.68, hgb A1C 5.6, LDL 210, HDL 39, triglycerides 213 and total cholesterol 292. Echcardiogram obtained reveals preserved LV systolic function with ejection fraction 60-65%, aneurysmal interatrial septum and mild TR. Bilateral carotid Doppler negative for significant stenosis. PHYSICAL EXAMINATION CONSTITUTIONAL: No apparent distress. Obese. HEENT: Head is normocephalic. Pupils are equal, round. Sclerae anicteric. Mucous membranes of the mouth are moist. No JVD. No carotid bruit. CHEST EXAMINATION: Lungs are clear to auscultation. No chest wall tenderness is noted on palpation or with deep breathing. HEART EXAMINATION: Regular rate and rhythm. S1, S2 heard. No murmurs, gallops or rub. EXTREMITIES: 2+ peripheral pulses, no lower extremity edema and no calf tenderness. ASSESSMENT Dizziness, suggestive of vertigo with history of recent ear disturbance Chest pain, atypical. Hypertension Obesity, BMI 39 PLAN Given antivert 12.5 mg now and TID scheduled and a one time dose of zofran. Awaiting ENT evaluation. Ongoing medical management. MRI pending. Follow up in the office with Dr. Hurst in 2 weeks for outpatient stress testing when vertigo has resolved. Nurse Practitioner note has been reviewed, I agree with a documented findings and plan of care. Patient was seen and examined. Objective - Vital Signs Vital signs: Vital Signs Temp 97.6 F 11/11/19 08:00 Pulse 70 11/11/19 08:00 Resp 18 11/11/19 08:00 BP 162/99 11/11/19 08:00 Pulse Ox 98 11/11/19 08:00 Intake & Output 11/10/19 11/11/19 11/11/19 18:59 06:59 18:59 Intake Total 20 525 Balance 20 525 Weight 112.808 kg Intake: Amount of Fluid Infused ( 20 ml) Intake, IV Titration 525 Amount Sodium Chloride 0.9% 1, 525 000 ml @ 75 mls/hr IV . [id number] [facility] Rx#:[id number] - Labs CBC & Chem 7: 11/09/19 20:37 11/10/19 08:53 Labs: Abnormal Lab Results - Last 24 Hours (Table) 11/10/19 Range/Units 08:53 BUN 21 H (9-20) mg/dL Triglycerides 213 H (<150) mg/dL Cholesterol 292 H (<200) mg/dL LDL Cholesterol, Calc 210 H (0-99) mg/dL HDL Cholesterol 39 L (40-60) mg/dL
[2019-11-11] MEDS: MECLIZINE 12.5 MG TAB PO SCH ×3 (10:26→21:08)
--- NOTE | 2019-11-11 11:17 | MR ---
EXAMINATION TYPE: MR angio head wo con DATE OF EXAM: 11/11/2019 COMPARISON: CT 11/09/2019 HISTORY: Vertigo, hypertension, abn CT TECHNIQUE: Utilizing 3-D [id number] intracranial MRA of the [place] was performed. FINDINGS: The vertebrobasilar and carotid systems are patent. There is no sizable aneurysm or vascular malform ation. The left posterior cerebral artery originates from the anterior circulation. Mild atheroscler otic change involving the left cavernous segment ICA IMPRESSION: 1. No evidence of vascular malformation or sizable aneurysm.
--- NOTE | 2019-11-11 11:26 | MR ---
EXAMINATION TYPE: MR brain wo/w con DATE OF EXAM: 11/11/2019 COMPARISON: CT brain 11/09/2019 HISTORY: Vertigo, hypertension, abn CT TECHNIQUE: Multiplanar, multisequence images of the brain and brainstem is performed without and with IV contras t, utilizing 11.5 mL intravenous Gadavist . FINDINGS: Diffusion weighted images demonstrate no evidence of a recent infarct or other diffusion ab normality. There is confluent as well as numerous focal areas of abnormal signal scattered throughout the white matter bilaterally in a nonspecific pattern. Changes of chronic sinusitis are noted. Craniocervical junction grossly maintained. Post contrast images demonstrate no abnormal enhancement. The dural venous sinuses appear patent. Clau bes are symmetric. Small focal area of abnormal signal involving the internal capsule on the right suggestive of remote lacunar infarction. No cerebellopontine angle mass. Mastoid air cells are clear. IMPRESSION: 1. Numerous abnormal areas of signal within the white matter are nonspecific can be associated with r emote microvascular ischemia or demyelinating process, correlate clinically. 2. Severe changes of chronic sinusitis. 3. No evidence of acute ischemia.
--- NOTE | 2019-11-11 14:03 | PN ---
PROGRESS NOTE CHIEF COMPLAINT: Episodes of vertigo. HISTORY OF PRESENT ILLNESS: This gentleman seems to be continuing to have episodes. These do not seem to be related to movement of the head. He suddenly will get fits of extreme vertigo. He has been seen by Neurology and an ENT consult has been requested. It is not planned that they will come to the hospital and request that the patient be seen after he is discharged. He is not having any problems with blood pressure, ear pain, tenderness, balance issues, etc. His MRI did demonstrate several areas of abnormality which could represent demyelinization or ischemic areas. EEG is pending. PHYSICAL EXAM: Head, ears, eyes, nose, mouth, and throat are normal. Neck is supple. Chest is clear and cardiac exam is normal. Neurologically, he is intact. IMPRESSION: 1. Episodes of vertigo, etiology unknown. 2. ? Cerebral ischemic events? PLAN: 1. Await EEG. 2. Await further recommendations from Neurology. It would probably be yanez to send him home on aspirin once a day, and possibly even Plavix for 30 days and continue to follow. MMODL / IJN: [id number] /
--- NOTE | 2019-11-11 14:27 | P.PN ---
Subjective Progress Note Date: 11/11/19 Patient feeling fine now. Apparently patient had an episode of vertigo with nausea vomiting today, that lasted for less than 2 minutes. His blood pressure was quite high 180/100 at that time. There were no associated neurological focal deficits. Objective - Vital Signs Vital signs: Vital Signs Temp 97.9 F 11/11/19 11:31 Pulse 68 11/11/19 11:31 Resp 18 11/11/19 11:31 BP 108/67 11/11/19 11:31 Pulse Ox 95 11/11/19 11:31 Intake & Output 11/10/19 11/11/19 11/11/19 18:59 06:59 18:59 Intake Total 20 525 Balance 20 525 Weight 112.808 kg Intake: Amount of Fluid Infused ( 20 ml) Intake, IV Titration 525 Amount Sodium Chloride 0.9% 1, 525 000 ml @ 75 mls/hr IV . [id number] ALYCE Rx#:[id number] - Exam Patient's mental status, speech and language functions are normal. Cranial nerves normal. Muscle strength normal. No ataxia. - Labs CBC & Chem 7: 11/09/19 20:37 11/10/19 08:53 Assessment and Plan Assessment: * 59-year-old male with recurrent, episodes of transient vertigo. MRI of the brain revealed evidence of significant paranasal sinus disease. Suspect peripheral vestibular dysfunction. TIA also in the differential. * Elevated blood pressure reading, possible hypertension. * Hyperlipidemia * X tobacco user. Plan: * Patient underwent MRI of the brain with and without contrast, which revealed numerous abnormal areas of signal within the white matter, nonspecific can be associated with remote microvascular ischemia or demyelinating process. There was no contrast enhancement. Patient may follow up with a neurologist as outpatient to rule out any demyelinating process. May need lumbar puncture as an outpatient to check for oligoclonal bands. MRI of the brain also revealed severe changes of chronic sinusitis. ENT following. Patient may need course of antibiotic. * MRA brain negative for any aneurysm or vascular malformation. * Continue aspirin 81 mg daily. * Continue Lipitor 40 mg for hyperlipidemia. Patient need to watch his diet. * Closely follow-up blood pressure. Hemoglobin A1c 5.6 which is normal. * Neurologically clear.
--- NOTE | 2019-11-11 16:17 | EEG ---
ELECTROENCEPHALOGRAM REPORT DATE OF SERVICE: 11/11/2019. PREAMBLE: This is a 59-year-old male with recurrent episodes of vertigo. This study is performed to evaluate for any epileptiform activity. EEG FINDINGS: A routine 21-channel awake digital EEG recording was accomplished utilizing the 10/20 international system with bipolar and referential montages. The background consists of well developed, well regulated, moderate voltage activity in 9-10 Hz alpha. Background is posterior-dominant and reactive to eye opening and closing. Photic driving response was seen with some flash frequencies. Hyperventilation revealed no abnormalities. Mild drowsiness was seen with appearance of theta frequency rhythm, but deeper stages of sleep were not seen. No focal or generalized epileptiform activity was seen. EKG channel lead revealed no arrhythmia. IMPRESSION: This is a normal awake and drowsy EEG. No focal lateralized or epileptiform activity was seen. MMODL / IJN: [id number] /
[2019-11-11] MEDS: SODIUM CHLORIDE 0.9% 1,000 ML IV SCH (19:22)
--- NOTE | 2019-11-11 21:13 | P.GSCN ---
History of Present Illness Consult date: 11/11/19 Reason for Consult: Dizziness Requesting physician: Coy Hurst History of present illness: This patient is a 59-year-old white male who developed dizziness Friday morning. He states that he moved his head to the right when he was stretching and he had about 5 seconds of vertigo. It resolved quickly and he felt that he was spitting to the left. Later that day who was driving and then he turned his head to the left to look at another car. When he did that he had dizziness for about 10 seconds. Later that day he was driving and looking at cars became dizzy again when he turned his head but only for 1-2 seconds. Later that day he went to the [facility] in [place] and when he was looking down when he was taking his blood pressure he was briefly dizzy. He has had no dizziness until earlier today when he was getting out of the bathroom look down and then was is in for about 1-2 seconds. He denies any neurologic symptoms. He denies any otologic symptoms. Review of Systems - Constitutional Reports anorexia - EENT Ears, nose, mouth and throat: Denies bleeding gums - Cardiovascular Denies claudication - Respiratory Denies cough with sputum - Gastrointestinal Denies change in bowel habits - Genitourinary Denies difficulties fathering child - Musculoskeletal Denies arm numbness/tingling - Integumentary Denies brittle nails - Neurological Reports balance difficulties, Reports vertigo, Denies aphasia, Denies ataxia, Denies burning pain, Denies change in mentation, Denies change in smell/taste, Denies change in speech, Denies confusion, Denies convulsions, Denies double vision, Denies gait dysfunction, Denies head injury, Denies headaches, Denies hearing difficulties, Denies lack of coordination, Denies loss of vision, Denies memory loss, Denies numbness, Denies paralysis, Denies paresthesias, Denies seizures, Denies sensory deficit, Denies syncope, Denies tingling, Denies transient paralysis, Denies tremors, Denies weakness, Denies visual changes Past Medical History Past Medical History: Hyperlipidemia Additional Past Medical History / Comment(s): Chest pain 3 weeks ago, elevated cholesterol in past-never placed on medication, CVA per cat scan taken today, 11/10/19 per pt, bronchitis, chronic low back pain x 4 months. History of Any Multi-Drug Resistant Organisms: None Reported Past Surgical History: Orthopedic Surgery Additional Past Surgical History / Comment(s): Arthroscopy L knee torn meniscus, pin in L hand 5th finger. Past Anesthesia/Blood Transfusion Reactions: No Reported Reaction Past Psychological History: No Psychological Hx Reported Smoking Status: Never smoker Past Alcohol Use History: None Reported Past Drug Use History: Marijuana - Past Family History Father Family Medical History: CVA/TIA, Myocardial Infarction (MS) Additional Family Medical History / Comment(s): Father at the age of 78yrs with a MS/CVA. Mother Family Medical History: Congestive Heart Failure (CHF), Pneumonia Additional Family Medical History / Comment(s): Mother of chf at the age of 62 yrs. Medications and Allergies Home Medications Medication Instructions Recorded Confirmed Type No Known Home Medications 11/09/19 11/09/19 History Allergies Allergy/AdvReac Type Severity Reaction Status Date / Time No Known Allergies Allergy Verified 11/09/19 21:24 Surgical - Exam Osteopathic Statement: *. No significant issues noted on an osteopathic structural exam other than those noted in the History and Physical/Consult. Vital Signs Temp Pulse Resp BP Pulse Ox 97.7 F 69 19 158/93 96 11/09/19 18:39 11/09/19 18:39 11/09/19 18:39 11/09/19 18:39 11/09/19 18:39 - General well developed, well nourished, obese - Eyes PERRL, normal ocular movement - ENT Debora-Hallpike maneuver was positive but nonspecific to her side. Negative for Cuda negative finger to nose. normal pinna, normal nares, normal mucosa, no hearing loss, no congestion - Neck no masses, no bruits, trachea midline, no lymphadectomy, no venous distension - Respiratory normal expansion, normal respiratory effort - Integumentary no rash, no growths, no abnormal pigmentation - Neurologic normal coordination, normal sensation - Musculoskeletal normal gait, normal posture - Psychiatric oriented to time, oriented to person, oriented to place, speech is normal Results - Labs 11/09/19 20:37 11/10/19 08:53 Assessment and Plan (1) Vertigo Current Visit: Yes Status: Acute Code(s): R42 - DIZZINESS AND GIDDINESS SNOMED Code(s): 904285531 (2) BPPV (benign paroxysmal positional vertigo) Current Visit: Yes Status: Acute Code(s): H81.10 - BENIGN PAROXYSMAL VERTIGO, UNSPECIFIED EAR SNOMED Code(s): 618114904 Plan: I'm recommending that this patient start on a Parnell Daroff exercise. The laterality of the suspected benign positional vertigo cannot be made so the Parnell dear off exercise is a good choice. Would not recommend an Néstor maneuver at this time. I will prevent a copy of the exercise for the patient to perform at home. I do need to see this patient on an outpatient basis for a reevaluation of the next few weeks. He understands that if his dizziness is persistent balance testing and further workup will be instituted through an outpatient basis. He understands the importance of keeping his cholesterol under control weight loss and diet in light of his small old lacunar infarct. Weight loss was strongly suggested. He has a very thick neck and clinically he may have obstructive sleep apnea syndrome and I did recommend a sleep study. The patient has declined a sleep study and tells me that he is motivated to lose weight which may control that issue. He will think about that recommendation. I will see him on outpatient basis. Time with Patient: Greater than 30
[2019-11-12] MEDS: SODIUM CHLORIDE 0.9% 1,000 ML IV SCH (00:10)
[2019-11-12 06:29] VITALS: TEMP 98.1
[2019-11-12] MEDS: ATORVASTATIN 40 MG TAB PO SCH (08:49)
[2019-11-12] MEDS: ASPIRIN 81 MG PO SCH (08:49)
[2019-11-12] MEDS: LISINOPRIL 5 MG TAB PO SCH (08:49)
[2019-11-12] MEDS: MECLIZINE 12.5 MG TAB PO SCH (08:49)
[2019-11-12 12:49] VITALS: BP 122/75; PULSE 97
--- NOTE | 2019-11-12 23:11 | DS ---
DISCHARGE SUMMARY CHIEF COMPLAINT: Episodes of vertigo. HISTORY OF PRESENT ILLNESS AND PHYSICAL EXAM: Details of this man's history and physical can be found in the initial workup. LABORATORY STUDIES: While he was in the hospital, he had laboratory studies, details of which can be found in the laboratory section of his chart. COURSE IN HOSPITAL: After admission, he was placed on bedrest, started on intravenous fluids and frequent monitoring of his neurologic status and vital signs. He was seen by Neurology. The MRI did suggest several lesions in the brain, which may as in some way be related to his episodes of vertigo. He was to be seen by ENT, but they did not come to the hospital. There. It was felt that he could be discharged. He will go home on his usual activity, diet and medication and he will follow up with us in the office as well as Neurology to complete his workup. FINAL DIAGNOSES: Vertigo. OPERATIONS: None. CONSULTATIONS: Neurology. He is improved. JERONIMO / MCKENNA: [id number] /
== END 2019-11-12 13:48 | disposition home or self-care (01) ==
LOC: EC 18:07 → 1SOBS 23:42 → UNDOADMOB 23:42 → 1SOBS 11-10 14:20 → OBSVTOIN 11-11 13:32 → INTOOBSV 11-11 13:32 → UNDODISIN 11-12 13:48
PROVIDERS: ADMIT Family Medicine; ATTEND Family Medicine
DX: R42 Dizziness and giddiness (principal); E78.5 Hyperlipidemia, unspecified; E66.9 Obesity, unspecified; R07.89 Other chest pain; G89.29 Other chronic pain; M54.5 Low back pain; I10 Essential (primary) hypertension; G47.33 Obstructive sleep apnea (adult) (pediatric); R11.2 Nausea with vomiting, unspecified; Z86.73 Personal history of transient ischemic attack (TIA), and cerebral infarction without residual deficits; Z98.890 Other specified postprocedural states; Z68.39 Body mass index [BMI] 39.0-39.9, adult; Z87.891 Personal history of nicotine dependence; Z87.09 Personal history of other diseases of the respiratory system; Z87.39 Personal history of other diseases of the musculoskeletal system and connective tissue; Z82.49 Family history of ischemic heart disease and other diseases of the circulatory system; Z82.3 Family history of stroke; Z83.6 Family history of other diseases of the respiratory system; J32.9 Chronic sinusitis, unspecified
CPT/HCPCS: 96361 ×3; 96374; 99285; 36415; 95816; 93005; 93306; 85379; 80061; 80053; 80048; 82550; 83735; 84484 ×2; 85025; 83036; 71046; 93880; 70450; 70544; 70553; G0378 ×3; J2405; A9585